=== PATIENT | male | born 1975 | race African-American/Black ===

== ENCOUNTER 2016-11-16 17:32 | Emergency (ER) | payer OTHER ==
[~2016-11-16] VITALS: Ht 190.5 cm; Wt 83.9 kg
[2016-11-16] MEDS ORDERED: NORVASC2.5 MG PO (17:39)
[2016-11-16] MEDS ORDERED: KEPPRA 500 MG500 M1 PO (18:09)
[2016-11-16 18:16] LABS: ABSOLUTE NEUTROPHILS 3.1 thou/uL (1.4-8.2); BASOPHILS 5.9 % (0.0-2.0); EOSINOPHILS 0.8 % (0.0-3.0); HEMATOCRIT 37.8 % (42.0-52.0); HEMOGLOBIN 13.1 gm/dL (14.0-18.0); MCH 32.2 pg (26.0-34.0); MCHC 34.7 g/dL (28.0-37.0); MCV 92.8 fL (80.0-100.0); MONOCYTES 6.6 % (1.0-8.0); PLATELET COUNT 428 thou/uL (150-400); POLYS 49.7 % (36.0-66.0); RBC 4.07 mil/uL (4.50-6.00); RDW 15.7 % (10.5-14.5); WBC 6.3 thou/uL (4.0-11.0)
[2016-11-16 18:23] LABS: MANUAL DIFF NO
[2016-11-16 18:24] LABS: CALCIUM 8.9 mg/dL (8.5-10.1); POTASSIUM 3.7 mmol/L (3.5-5.1)
[2016-11-16 18:30] LABS: TOTAL BILIRUBIN 0.3 mg/dL (<0.1-1.0); TOTAL PROTEIN 8.2 g/dL (6.4-8.2)
[2016-11-16 20:17] VITALS: BP 138/90
[2016-11-16] MEDS ORDERED: ATIVAN1 MG PO (20:26)
== END 2016-11-16 20:39 | disposition home or self-care (01) ==
LOC: ER 17:32
PROVIDERS: Nurse Practitioner Family
DX: F10.120 Alcohol abuse with intoxication, uncomplicated (principal); I10 Essential (primary) hypertension